=== PATIENT | female | born 1945 | race Two or more races ===

== ENCOUNTER 2018-12-18 11:54 | Emergency (ER) | payer OTHER ==
[~2018-12-18] VITALS: Ht 160 cm; Wt 92.5 kg
[2018-12-18] MEDS ORDERED: LOSARTAN POTASS25 MG (12:07)
[2018-12-18] MEDS ORDERED: COD LIVER OIL1 EACH (12:08)
[2018-12-18] MEDS ORDERED: FLONASE ALLERG9.9 ML NASAL (15:13)
== END 2018-12-18 16:54 | disposition home or self-care (01) ==
LOC: ER 11:54
DX: R04.0 Epistaxis (principal)